=== PATIENT | male | born 1935 | race Caucasian/White ===

== ENCOUNTER 2024-07-22 13:06 | Observation (INO) | payer BC ==
[2024-07-22 13:52] LABS: BASO % 0.6 % (0-2.0); EOS % 2.3 % (0-4.5); HEMATOCRIT 36.5 % (35.4-49); HEMOGLOBIN 12.4 GM/dL (11.7-16.9); LYMPH % 8.8 % (8-40); MCH 30.6 pg (25.7-33.7); MEAN CELL VOLUME 89.9 fl (80-96); MEAN PLT VOLUME 6.3 fl (7.5-11.1); MONO % 4.8 % (3.8-10.2); NEUT % 83.5 % (42.8-82.8); PLATELET COUNT 247 10^3/uL (134-434); RBC 4.06 M/mm3 (4.00-5.60); RDW 13.7 % (11.9-15.9); WHITE BLOOD COUNT 7.3 K/mm3 (4.0-10.0)
[2024-07-22 13:59] LABS: INR 1.04 (0.83-1.09); PROTHROMBIN TIME (PATIENT) 11.7 SEC (9.7-13.0)
[2024-07-22 14:02] LABS: ACTIVATED PTT 30.2 SECONDS (25.2-36.5)
[2024-07-22 14:06] VITALS: BMI 25.8
[2024-07-22 14:12] LABS: POTASSIUM 4.5 mmol/L (3.5-5.1)
[2024-07-22 14:14] LABS: ALBUMIN 3.8 g/dl (3.4-5.0)
[2024-07-22 14:18] LABS: CREATININE 1.7 mg/dL (0.55-1.3)
[2024-07-22 14:19] LABS: BILIRUBIN,TOTAL 1.8 mg/dL (0.2-1); TOT PROT 6.9 g/dl (6.4-8.2)
[2024-07-22] MEDS: LACTATED RINGERS SOLUTION 1000 ML INFUS.BAG IV ONE (14:36)
[2024-07-22] MEDS: SODIUM CHLORIDE 0.9% 500 ML INFUS.BAG IV ONE (14:37)
[2024-07-22 15:27] VITALS: BP 131/71; PULSE 72; RESP 19
[2024-07-22 15:37] LABS: N-TERMINAL BNP 194.9 pg/ml (5-450)
[2024-07-22 15:45] VITALS: TEMP 97.8
== END 2024-07-22 15:30 | disposition left against medical advice (07) ==
LOC: JER 13:06 → JERBED 14:47
PROVIDERS: ADMIT Internal Medicine; ATTEND Internal Medicine
PROC: 3E0337Z Introduction of Electrolytic and Water Balance Substance into Peripheral Vein, Percutaneous Approach (ICD-10-PCS; principal; 2024-07-22)
DX: R55 Syncope and collapse (principal); I10 Essential (primary) hypertension; Z53.21 Procedure and treatment not carried out due to patient leaving prior to being seen by health care provider
CPT/HCPCS: 0241U-QW; 36415; 70450-TC; 71045-TC-FY; 80053; 83880; 84439; 84443; 84484; 85025; 85610; 85730; 93005; 93010; 96360; 99285-25; G0378